=== PATIENT | female | born 1985 | race Caucasian/White ===

== ENCOUNTER 2017-07-05 09:17 | Emergency (ER) | payer BC ==
[~2017-07-05] VITALS: Ht 175.3 cm; Wt 59.0 kg
[2017-07-05] MEDS ORDERED: NKM (09:27)
[2017-07-05 09:33] VITALS: BP 118/80
[2017-07-05 10:07] LABS: APPEARANCE,URINE SLIGHTLY CLOUDY; KETONES,URINE NEGATIVE (NEGATIVE); LEUKOCYTE ESTERASE ,URINE 1+ (NEGATIVE); NITRITE,URINE NEGATIVE (NEGATIVE); PH,URINE 6.5 (4.5-8.0); PROTEIN,URINE NEGATIVE (NEGATIVE); UROBILINOGEN,URINE NORMAL MG/DL (0.0-1.0)
[2017-07-05 10:16] LABS: BACTERIA,URINE FEW /HPF; RBC,URINE 0-2 /HPF (0 - 2); SQUAMOUS EPITHELIAL CELL,UR MODERATE /LPF (NONE/OCC); WBC,URINE 0-2 /HPF (0 - 2); YEAST,URINE FEW /HPF
[2017-07-05] MEDS ORDERED: Morphine Sulfate 4mg/ml Inj IVP ONE ×2 (10:45→12:00)
[2017-07-05] MEDS ORDERED: Ketorolac 30mg Inj IV ONE (10:45)
[2017-07-05 10:59] LABS: BASOPHILS % (AUTO) 0.8 % (0.0-2.0); EOSINOPHILS % (AUTO) 0.7 % (0.0-3.0); LYMPHOCYTES % (AUTO) 29.9 % (20.0-45.0); MEAN CORPUSCULAR HEMOGLOBIN 29.9 PG (27.0-31.0); MEAN CORPUSCULAR HGB CONC 32.8 G/DL (32.0-36.0); MEAN CORPUSCULAR VOLUME 91 FL (80-99); MEAN PLATELET VOLUME 10.5 FL (6.5-10.1); NEUTROPHILS % (AUTO) 62.6 % (45.0-75.0); PLATELET COUNT 147 K/UL (150-450); RED CELL DISTRIBUTION WIDTH 11.4 % (11.6-14.8); WHITE BLOOD COUNT 7.2 K/UL (4.8-10.8)
[2017-07-05 11:13] LABS: ALANINE AMINOTRANSFERASE 14 U/L (3-33); ALBUMIN/GLOBULIN RATIO 1.5 (1.0-2.7); ANION GAP 11 (5-15); ASPARTATE AMINO TRANSFERASE 24 U/L (5-40); CALCIUM 8.9 mg/dL (8.6-10.2); CARBON DIOXIDE 25 mEQ/L (20-30); CHLORIDE 102 mEQ/L (98-107); CREATININE 0.6 mg/dL (0.5-0.9); GLOMERULAR FILTRATION RATE > 60 mL/min (>60); HEMOLYSIS 80; LIPASE 23 U/L (< 60); SODIUM 138 mEQ/L (135-145); TOTAL PROTEIN 7.8 g/dL (6.6-8.7)
[2017-07-05 12:24] VITALS: BP 110/74
[2017-07-05] MEDS ORDERED: OMEPRAZOLE10 M1 ORAL (12:46)
[2017-07-05] MEDS ORDERED: COLACE100 MG ORAL (12:46)
[2017-07-05] MEDS ORDERED: NORCO 5-325 TA1 EACH ORAL (12:46)
[2017-07-05 13:08] VITALS: BP 107/69
--- NOTE | 2017-07-05 15:33 | Emergency Room Report ---
History of Present Illness General Chief Complaint: Pain Source: Patient Present Illness HPI This is a 31-year-old female presented after increased left-sided flank pain. Patient reported having increased pain sudden onset after twisting. She reported having constant pain which did not radiate to she denied any numbness or weakness to her extremities. She had not been having any vomiting or diarrhea. She reports having increased pain with supine position. She had prior history of ulcer disease.The patient denies any recent emesis or bloody stools. She denies being . She denied any fever or dysuria.The patient stated that she had been previously prescribed tramadol for headaches. Allergies: Coded Allergies: No Known Allergies (Unverified , 07/05/17) Patient History Past Medical History: see triage record Last Menstrual Period: 06/10/17 Now: No Reviewed Nursing Documentation: PMH: Agreed, PSxH: Agreed Nursing Documentation-PMH Past Medical History: No Stated History Review of Systems All Other Systems: negative except mentioned in HPI Physical Exam Vital Signs Date Time Temp Pulse Resp B/P (MAP) Pulse Ox O2 Delivery O2 Flow Rate FiO2 07/05/17 09:24 98.2 92 20 114/78 99 Room Air Sp02 EP Interpretation: reviewed, normal General Appearance: normal inspection, well appearing, no apparent distress, alert, GCS 15 Head: atraumatic ENT: normal ENT inspection, hearing grossly normal, normal voice Neck: normal inspection, full range of motion, supple, no bony tend Respiratory: normal inspection, lungs clear, normal breath sounds, no respiratory distress, no retraction, no wheezing Cardiovascular #1: regular rate, rhythm, no edema Gastrointestinal: normal inspection, normal bowel sounds, non tender, soft, no guarding, no hernia Genitourinary: CVA tenderness (L) Musculoskeletal: normal inspection, back normal, normal range of motion Neurologic: normal inspection, alert, oriented x3, responsive, melangeur operator III-XII nml as tested, speech normal Psychiatric: normal inspection, judgement/insight normal, mood/affect normal Skin: normal inspection, normal color, no rash Medical Decision Making Diagnostic Impression: Primary Impression: Back pain ER Course Patient presented for back pain. Differential diagnosis included but was not limited to herniated disc, cauda equina syndrome, perforated ulcer, pulmonary embolus, abdominal aortic aneurysm, perforated ulcer, spinal epidural abscess, spinal stenosis, lumbar fracture, metastatic lesion, pyelonephritis I laboratory studies were ordered due to patient's severity pain. The patient was given IV pain medications. Laboratory studies were unremarkable. A d- dimer was negative. CT abdomen pelvis read by radiology showed no acute abdominal pathology. There was a right-sided cyst on her ovary. There was small amount of fluid in the pelvis consistent with physiologic fluid. The patient was advised followup with her primary care physician for further evaluation. She is advised to return if she began having increased pain persistent vomiting or fevers or other concerns Last Vital Signs Date Time Temp Pulse Resp B/P (MAP) Pulse Ox O2 Delivery O2 Flow Rate FiO2 07/05/17 13:08 63 16 107/69 98 Room Air 07/05/17 12:55 98.2 Status: improved Disposition: HOME, SELF-CARE Condition: Stable Scripts Docusate Sodium* (COLACE*) 100 Mg Capsule 100 MG ORAL DAILY, #30 CAP Prov: Raciel Argueta 07/05/17 Omeprazole (OMEPRAZOLE) 10 Mg Capsule.dr 10 MG ORAL DAILY, #30 CAP 0 Refills Prov: Raciel Argueta 07/05/17 Hydrocodone Bit/Acetaminophen 5-325* (NORCO 5-325*) 1 Each Tablet 1 TAB ORAL Q6H Y for For Pain, #20 TAB 0 Refills Prov: Raciel Argueta 07/05/17 Patient Instructions: Back Pain, Adult Raciel Argueta Jul 05, 2017 15:33
--- NOTE | 2017-07-06 10:18 | Diagnostic Imaging Report ---
Indication: Shortness of breath Technique: XRAY CHEST 1 V Comparison: None Findings: The cardiomediastinal silhouette is within normal limits. There is no focal consolidation, pneumothorax or pleural effusion. Osseous structures demonstrate no acute abnormality. Impression: No acute cardiopulmonary disease.
--- NOTE | 2017-07-06 10:23 | Diagnostic Imaging Report ---
Indication: Back pain Technique: CT of the abdomen and pelvis utilizing automated exposure control with intravenous contrast. Venous scanning performed. CT dose: Total DLP 715 mGycm; CTDI vol 12.8 mGy Comparison: None Findings: Lung bases are clear. The liver, adrenal glands, spleen and pancreas are unremarkable. No CT evident gallstones are seen. The kidneys are grossly unremarkable. There is limited evaluation of the bowel without oral contrast. The small bowel loops are normal in caliber. There is no definitive evidence of appendicitis. There is trace free fluid in the pelvis. There is an approximately 2 cm right ovarian probable involuting functional cyst. There is minimal anterolisthesis of L5 on S1 without spondylolysis. Bladder is not well distended. Impression: Grossly normal sonographic appearance of the kidneys. Trace fluid in the pelvis. Approximately 2 cm right ovarian rim-enhancing probable involuting functional cyst. Clinical correlation recommended. Approximately 3 mm anterolisthesis of L5 on S1 without spondylolysis. Clinical correlation recommended. The CT scanner at [facility] is accredited by the [employer] and the scans are performed using protocols designed to limit radiation exposure to as low as reasonably achievable to attain images of sufficient resolution adequate for diagnostic evaluation.
== END 2017-07-05 13:10 | disposition home or self-care (01) ==
LOC: EMR 09:46
DX: M54.9 Dorsalgia, unspecified (principal); R06.02 Shortness of breath
CPT/HCPCS: 36415; 71010; 74177; 80053; 81003; 81025; 83690; 85025; 85379; 87086; 96361; 96374; 96375; 96376; 99284; J1885; J2270; J2405; J7040; Q9967